=== PATIENT | male | born 1940 | race Two or more races ===

== ENCOUNTER → 2017-09-26 | Emergency (ER) | payer OTHER ==
[~2017-09-26] VITALS: Ht 172.7 cm; Wt 68.0 kg
[~2017-09-26] MED LIST: ALPHA LIPOIC A300 MG; ARICEPT5 MG; ASPIR 8181 MG; FOSAMAX70 MG; INTESTINEX1 CAP PO; MEDROLPACK PO; MELATONIN5 GM; NEURONTIN300 MG PO; PLAVIX 75MG PO; PROSCAR5 MG; PROTONIX40 MG PO; SEPTRA 80-400 T1 TAB PO; SYNTHROID125 MCG PO; TAMS0.4C PO; ZOCOR40 MG
== END | disposition home or self-care (01) ==
LOC: ER 14:06
DX: R07.89 Other chest pain (principal); S00.03XA Contusion of scalp, initial encounter; S19.9XXA Unspecified injury of neck, initial encounter; R55 Syncope and collapse; W18.09XA Striking against other object with subsequent fall, initial encounter; Y93.89 Activity, other specified; Y92.018 Other place in single-family (private) house as the place of occurrence of the external cause; Y99.8 Other external cause status

== ENCOUNTER 2017-10-11 08:52 | Outpatient (CLI) | payer OTHER | END 2017-10-11 09:10 | disposition home or self-care (01) | LOC: OFIC 805 08:52 | DX: H90.3 Sensorineural hearing loss, bilateral (principal); H61.23 Impacted cerumen, bilateral; R42 Dizziness and giddiness; J31.0 Chronic rhinitis ==

== ENCOUNTER 2017-11-04 10:23 | Emergency (ER) | payer OTHER ==
[~2017-11-04] VITALS: Ht 170.2 cm; Wt 66.2 kg
[2017-11-04] MEDS ORDERED: SYNTHROID137 MCG (10:43)
[2017-11-04] MEDS ORDERED: PERMETHRIN60 GM TOP (12:45)
== END 2017-11-04 12:54 | disposition home or self-care (01) ==
LOC: ER 10:23 → EDBD 10:32 → ER 12:54
DX: B86 Scabies (principal)

== ENCOUNTER 2017-12-13 11:02 | Outpatient (CLI) | payer OTHER ==
[~2017-12-13] VITALS: Ht 152.4 cm; Wt 59.0 kg
== END 2017-12-13 11:20 | disposition home or self-care (01) ==
LOC: OFIC 805 11:02
DX: H70.12 Chronic mastoiditis, left ear (principal); H69.82 Other specified disorders of Eustachian tube, left ear; H90.72 Mixed conductive and sensorineural hearing loss, unilateral, left ear, with unrestricted hearing on the contralateral side; H90.3 Sensorineural hearing loss, bilateral

== ENCOUNTER → 2017-12-13 | Outpatient (CLI) | payer OTHER ==
[~2017-12-13] MED LIST changes: +PERMETHRIN60 GM TOP; +SYNTHROID137 MCG
== END | disposition home or self-care (01) ==
LOC: TOM 13:22
DX: H70.12 Chronic mastoiditis, left ear (principal); H69.82 Other specified disorders of Eustachian tube, left ear

== ENCOUNTER 2018-01-03 07:14 | Outpatient (CLI) | payer OTHER ==
[~2018-01-03] VITALS: Ht 152.4 cm; Wt 65.8 kg
== END 2018-01-03 07:35 | disposition home or self-care (01) ==
LOC: OFIC 805 07:14
DX: H90.3 Sensorineural hearing loss, bilateral (principal); R42 Dizziness and giddiness; R55 Syncope and collapse

== ENCOUNTER 2018-01-23 11:22 | Emergency (ER) | payer OTHER ==
[~2018-01-23] VITALS: Ht 170.2 cm; Wt 64.9 kg
[2018-01-23] MEDS ORDERED: SYNTHROID150 MCG (11:32)
== END 2018-01-23 15:38 | disposition home or self-care (01) ==
LOC: ER 11:22
DX: B34.9 Viral infection, unspecified (principal)

== ENCOUNTER 2018-02-20 09:01 | Outpatient (CLI) | payer OTHER ==
[~2018-02-20 09:01] MED LIST changes: +SYNTHROID150 MCG
== END 2018-02-20 10:00 | disposition home or self-care (01) ==
LOC: NUCLEAR 09:01
DX: R55 Syncope and collapse (principal)

== ENCOUNTER 2018-06-29 11:08 | Emergency (ER) | payer OTHER ==
[~2018-06-29] VITALS: Ht 172.7 cm; Wt 67.1 kg
[2018-07-04] MEDS ORDERED: MECLIZINE HCL25 MG PO (12:46)
== END 2018-06-29 13:49 | disposition home or self-care (01) ==
LOC: ER 11:08
DX: R55 Syncope and collapse (principal)

== ENCOUNTER 2018-06-30 15:39 | Outpatient (CLI) | payer OTHER ==
[2018-07-04] MEDS ORDERED: MECLIZINE HCL25 MG PO (12:46)
== END 2018-06-30 15:44 | disposition home or self-care (01) ==
LOC: RAD 15:39
DX: M54.2 Cervicalgia (principal)

== ENCOUNTER 2018-06-30 16:23 | Emergency (ER) | payer OTHER ==
[~2018-06-30] VITALS: Ht 165.1 cm; Wt 68.0 kg
== END 2018-06-30 19:49 | disposition home or self-care (01) ==
LOC: ER 16:23
DX: K29.60 Other gastritis without bleeding (principal)

== ENCOUNTER 2018-07-02 16:01 | Inpatient (IN) | payer OTHER ==
[~2018-07-02] VITALS: Ht 165.1 cm; Wt 68.0 kg
[2018-07-04] MEDS ORDERED: MECLIZINE HCL25 MG PO ×2 (12:46)
== END 2018-07-04 13:17 | DRG 392 ==
LOC: SEC-K 16:01
PROC: B030ZZZ Magnetic Resonance Imaging (MRI) of Brain (ICD-10-PCS; principal; 2018-07-02)
PROC: B246ZZZ Ultrasonography of Right and Left Heart (ICD-10-PCS; 2018-07-02)
PROC: B345ZZZ Ultrasonography of Bilateral Common Carotid Arteries (ICD-10-PCS; 2018-07-03)
PROC: B348ZZZ Ultrasonography of Bilateral Internal Carotid Arteries (ICD-10-PCS; 2018-07-03)
DX: K29.00 Acute gastritis without bleeding (principal); R55 Syncope and collapse
CPT/HCPCS: 70544

== ENCOUNTER 2018-07-25 07:35 | Outpatient (CLI) | payer OTHER ==
[~2018-07-25 07:35] MED LIST changes: +MECLIZINE HCL25 MG PO
== END 2018-07-25 07:50 | disposition home or self-care (01) ==
LOC: OFIC 805 07:35
DX: R42 Dizziness and giddiness (principal); H61.23 Impacted cerumen, bilateral; R55 Syncope and collapse

== ENCOUNTER 2018-09-17 19:48 | Emergency (ER) | payer OTHER ==
[~2018-09-17] VITALS: Ht 167.6 cm; Wt 63.5 kg
[2018-09-17] MEDS ORDERED: PLAVIX75 MG (20:24)
[2018-09-17] MEDS ORDERED: SIMVASTATIN20 MG (20:25)
[2018-09-17] MEDS ORDERED: MIDODRINE HCL5 MG (20:26)
== END 2018-09-18 17:32 | disposition home or self-care (01) ==
LOC: ER 19:48
DX: N40.0 Benign prostatic hyperplasia without lower urinary tract symptoms (principal); R31.0 Gross hematuria; R30.0 Dysuria

== ENCOUNTER 2018-11-15 20:08 | Inpatient (IN) | payer OTHER ==
[~2018-11-15] VITALS: Ht 177.8 cm; Wt 66.7 kg
[~2018-11-15 20:08] MED LIST changes: +MIDODRINE HCL5 MG; +PLAVIX75 MG; +SIMVASTATIN20 MG
--- NOTE | 2018-11-15 21:21 | NUR ---
SE RECIBE PTE ALERTA Y ORIENTADO X3 DE AMBULANCIA ACOMPANADO. PTE REFIERE ESTAR CON HEMATURIA DESDE GÉNESIS. PTE REFIERE NO TENER DOLOR AL MOMENTO.
--- NOTE | 2018-11-16 00:24 | NUR ---
PT ALERTA Y ORIENTADAO X3 ESFERAS SE LE ORIENTA SOBRE TX Y REFIERE ENTEDER. SE KENNY MUESTRAS DE BRIAN Y VENOPUNCION CON TECNICAS ASEPTICAS. PT [place]. PENDIENTE INSERCION DE JOHN PAUL CATETER [address]. PT MANEJADO POR MS MOTTA.
--- NOTE | 2018-11-16 07:44 | NUR ---
SE RECIBE PTE ALERTA Y CONCIENTE POR 3 EN CAMA CON BARANDAS ELEVADA Y TIMBRE ACCESIBLE SE OSBERVA VENOPUNCION PATENTE Y LENA DE EDEMA PTE SE MANTIENE EN OBSERVACION Y BAJO TRATAMIENTO.PTE CON COKER 3WAY SE OBSERVA ORINA AL MOMENTO EDU SON BRIAN PTE ENESPERA DEL INTERNISTA
[2018-11-19] MEDS ORDERED: CIPRO500 MG PO (09:26)
[2018-11-19] MEDS ORDERED: PYRIDIUM100 MG PO (09:27)
[2018-11-19] MEDS ORDERED: CENTRUM SILVER1 EAC2 PO (09:29)
== END 2018-11-19 13:18 | disposition home or self-care (01) | DRG 696 ==
LOC: ER 20:08 → SEC-K 11-16 09:37 → SURH 11-16 09:37
PROVIDERS: ADMIT Internal Medicine
DX: R31.0 Gross hematuria (principal); N40.0 Benign prostatic hyperplasia without lower urinary tract symptoms

== ENCOUNTER 2019-01-09 03:13 | Emergency (ER) | payer OTHER ==
[~2019-01-09] VITALS: Ht 170.2 cm; Wt 68.0 kg
[~2019-01-09 03:13] MED LIST changes: +CENTRUM SILVER1 EAC2 PO; +CIPRO500 MG PO; +PYRIDIUM100 MG PO
[2019-01-09] MEDS ORDERED: PNEU16DI2 (03:42)
[2019-01-09] MEDS ORDERED: TAMS0.4C PO (03:42)
[2019-01-09] MEDS ORDERED: M.V.I.-1250 ML IV (03:42)
== END 2019-01-09 13:46 | disposition home or self-care (01) ==
LOC: ER 03:13
DX: K52.89 Other specified noninfective gastroenteritis and colitis (principal)

== ENCOUNTER 2019-05-14 08:44 | Outpatient (CLI) | payer OTHER ==
[~2019-05-14 08:44] MED LIST changes: +M.V.I.-1250 ML IV; +PNEU16DI2
== END 2019-05-14 08:51 | disposition home or self-care (01) ==
LOC: TOM 08:44
DX: G45.8 Other transient cerebral ischemic attacks and related syndromes (principal)

== ENCOUNTER 2020-06-22 13:43 | Outpatient (CLI) | payer OTHER | END 2020-06-22 13:57 | disposition home or self-care (01) | LOC: SONOGRAMA 13:43 → MAMO-SONO 13:45 → SONOGRAMA 13:57 | PROVIDERS: ATTEND Internal Medicine | DX: N28.89 Other specified disorders of kidney and ureter (principal) ==

== ENCOUNTER → 2020-08-24 | Emergency (ER) | payer OTHER ==
[~2020-08-24] VITALS: Ht 167.6 cm; Wt 68.0 kg
== END | disposition home or self-care (01) ==
LOC: ER 10:15
DX: M54.5 Low back pain (principal)

== ENCOUNTER → 2020-09-12 | Outpatient (CLI) | payer OTHER | END | disposition home or self-care (01) | LOC: MRI 14:08 | PROVIDERS: ATTEND Internal Medicine | DX: M48.07 Spinal stenosis, lumbosacral region (principal); M54.5 Low back pain | CPT/HCPCS: 72148 ==

== ENCOUNTER 2021-07-03 10:37 | Emergency (ER) | payer OTHER ==
[~2021-07-03] VITALS: Ht 162.6 cm; Wt 67.1 kg
== END 2021-07-03 15:30 | disposition home or self-care (01) ==
LOC: ER 10:37 → CPU-OBS 10:40 → ER 10:40
DX: R07.89 Other chest pain (principal); Z03.818 Encounter for observation for suspected exposure to other biological agents ruled out

== ENCOUNTER 2021-09-21 10:34 | Outpatient (CLI) | payer OTHER | END 2021-09-21 10:47 | disposition home or self-care (01) | LOC: SONOGRAMA 10:34 | PROVIDERS: ATTEND Internal Medicine | DX: E04.2 Nontoxic multinodular goiter (principal) ==

== ENCOUNTER 2021-10-23 07:51 | Outpatient (CLI) | payer OTHER | END 2021-10-23 07:58 | disposition home or self-care (01) | LOC: TOM 07:51 | PROVIDERS: ATTEND Specialist | DX: N40.1 Benign prostatic hyperplasia with lower urinary tract symptoms (principal) ==

== ENCOUNTER 2022-07-17 10:49 | Outpatient (CLI) | payer OTHER | END 2022-07-17 10:50 | disposition home or self-care (01) | LOC: NUCLEAR 10:49 | PROVIDERS: ATTEND Internal Medicine | DX: I73.9 Peripheral vascular disease, unspecified (principal); I87.2 Venous insufficiency (chronic) (peripheral) ==

== ENCOUNTER 2022-08-08 12:48 | Outpatient (CLI) | payer OTHER | END 2022-08-08 12:58 | disposition home or self-care (01) | LOC: PPH VACUNA 12:48 | PROVIDERS: ATTEND Emergency Medicine Pediatric Emergency Medicine | DX: Z23 Encounter for immunization (principal) ==

== ENCOUNTER → 2022-09-18 | Emergency (ER) | payer OTHER ==
[~2022-09-18] VITALS: Ht 167.6 cm; Wt 65.8 kg
[~2022-09-18] MED LIST changes: +EZETIMIBE10 MG PO; +ISOSORBIDE DINI30 MG PO; +PLAVIX75 MG PO; +PROTOPIC100 GM TP
== END | disposition left against medical advice (07) ==
LOC: ER 12:35
DX: R10.9 Unspecified abdominal pain (principal); K21.9 Gastro-esophageal reflux disease without esophagitis; E07.9 Disorder of thyroid, unspecified; I20.9 Angina pectoris, unspecified

== ENCOUNTER → 2022-10-10 | Outpatient (CLI) | payer OTHER | END | disposition home or self-care (01) | LOC: NUCLEAR 07:00 | PROVIDERS: ATTEND Internal Medicine | DX: R10.9 Unspecified abdominal pain (principal) | CPT/HCPCS: 78227; A9537; J2805 ==

== ENCOUNTER 2022-11-13 08:13 | Emergency (ER) | payer OTHER ==
[~2022-11-13] VITALS: Ht 180.3 cm; Wt 63.5 kg
== END 2022-11-13 11:48 | disposition home or self-care (01) ==
LOC: ER 08:13
DX: S29.8XXA Other specified injuries of thorax, initial encounter (principal); W06.XXXA Fall from bed, initial encounter; Y93.89 Activity, other specified; Y92.012 Bathroom of single-family (private) house as the place of occurrence of the external cause; F03.90 Unspecified dementia, unspecified severity, without behavioral disturbance, psychotic disturbance, mood disturbance, and anxiety; E07.89 Other specified disorders of thyroid; N41.8 Other inflammatory diseases of prostate; J32.8 Other chronic sinusitis; R07.81 Pleurodynia

== ENCOUNTER 2022-12-03 15:29 | Outpatient (CLI) | payer OTHER | END 2022-12-03 15:37 | disposition home or self-care (01) | LOC: RAD 15:29 | PROVIDERS: ATTEND Internal Medicine | DX: M54.17 Radiculopathy, lumbosacral region (principal) ==

== ENCOUNTER 2023-08-01 09:26 | Outpatient (CLI) | payer OTHER | END 2023-08-01 09:35 | disposition home or self-care (01) | LOC: SONOGRAMA 09:26 | PROVIDERS: ATTEND Internal Medicine | DX: N62 Hypertrophy of breast (principal) ==

== ENCOUNTER 2023-10-16 09:58 | Emergency (ER) | payer OTHER ==
[~2023-10-16] VITALS: Ht 162.6 cm; Wt 63.5 kg
[2023-10-16] MEDS ORDERED: SYNTHROID137 MCG PO (10:24)
[2023-10-16] MEDS ORDERED: NAMENDA5 MG PO (10:26)
[2023-10-16] MEDS ORDERED: ISOSORBIDE MONO60 MG PO (10:26)
[2023-10-16] MEDS ORDERED: MECLIZINE HCL 25 MG TABLET PO STA (10:46)
[2023-10-16 11:26] LABS: HEMATOCRIT 39.9 % (39.0-48.0); HEMOGLOBIN 13.4 g/dL (13-16.00); MEAN CELL VOLUME 95.8 fL (80.0-100.00); MEAN CORPUSCULAR HEMOGLOBIN 32.1 pg (27.00-32.0); MEAN CORPUSCULAR HGB CONC 33.5 g/dl (32.0-36.0); PLATELET COUNT 224 K/uL (150-450); RED BLOOD COUNT 4.17 M/uL (4.00-6.00)
[2023-10-16 11:36] LABS: PH,URINE 5.5 (5.0-8.0); URINE APPEARANCE Clear; URINE BILIRRUBIN Negative (NEGATIVE); URINE BLOOD Negative; URINE COLOR Yellow; URINE GLUCOSE Negative (NEGATIVE); URINE LEUKOCYTE Negative; URINE NITRATE Negative; URINE PROTEIN Negative (NEGATIVE); URINE UROBILINOGEN 0.2 E.U./dl
[2023-10-16 11:37] LABS: URINE BACTERIA 13.8 uL (0.0-1933); URINE RBC 2.8 uL (0.0-20.8); URINE WBC 5.2 uL (0.0-23.2)
[2023-10-16 11:41] LABS: URINE EPITHELIAL CELLS 0.7 uL (0.0-38.8)
[2023-10-16 11:44] LABS: CALCIUM 8.8 mg/dL (8.5-10.1); CREATININE SERUM 1.11 mg/dL (0.70-1.30); GFR 63.26; POTASSIUM 4.84 mEq/L (3.5-5.1)
== END 2023-10-16 13:35 | disposition home or self-care (01) ==
LOC: ER 09:58
PROVIDERS: General Practice
DX: R42 Dizziness and giddiness (principal); R53.1 Weakness; E03.8 Other specified hypothyroidism

== ENCOUNTER 2024-06-10 11:46 | Emergency (ER) | payer OTHER ==
[~2024-06-10] VITALS: Ht 162.6 cm; Wt 64.9 kg
[~2024-06-10 11:46] MED LIST changes: +ISOSORBIDE MONO60 MG PO; +NAMENDA5 MG PO; +SYNTHROID137 MCG PO
[2024-06-10] MEDS ORDERED: TRIAMCINOLONE ACETONIDE 40 MG/ML VIAL IM ONE (12:45)
[2024-06-10] MEDS ORDERED: ORPHENADRINE CITRATE 30 MG/ML AMPUL IM ONE (12:45)
[2024-06-10] MEDS ORDERED: AZITHROMYCIN 500 MG TABLET PO ONE (12:45)
[2024-06-10 13:32] LABS: HEMATOCRIT 40.9 % (39.0-48.0); HEMOGLOBIN 13.8 g/dL (13-16.00); MEAN CELL VOLUME 95.5 fL (80.0-100.00); MEAN CORPUSCULAR HEMOGLOBIN 32.2 pg (27.00-32.0); MEAN CORPUSCULAR HGB CONC 33.7 g/dl (32.0-36.0); PLATELET COUNT 216 K/uL (150-450); RED BLOOD COUNT 4.29 M/uL (4.00-6.00); RED CELL DISTRIBUTION WIDTH 13.9 % (11.5-14.5)
[2024-06-10] MEDS ORDERED: ZITHROMAX500 MG PO (14:37)
[2024-06-10] MEDS ORDERED: ZYRTEC10 M3 PO (14:37)
[2024-06-10] MEDS ORDERED: TUSSIN100 MG/51 PO (14:37)
== END 2024-06-10 14:46 | disposition home or self-care (01) ==
LOC: ER 11:48
PROVIDERS: General Practice
DX: M54.50 Low back pain, unspecified (principal); J06.9 Acute upper respiratory infection, unspecified; I11.9 Hypertensive heart disease without heart failure; Z20.822 Contact with and (suspected) exposure to COVID-19
CPT/HCPCS: 36415; 96372; 99282; J2360; J3301

== ENCOUNTER → 2024-08-30 | Emergency (ER) | payer OTHER ==
[~2024-08-30] VITALS: Ht 172.7 cm; Wt 61.2 kg
[~2024-08-30] MED LIST changes: +ACETAMINOPHEN 500 MG GEL..CAP PO ONE; +TUSSIN100 MG/51 PO; +ZITHROMAX500 MG PO; +ZYRTEC10 M3 PO
[2024-08-30 11:26] LABS: HEMATOCRIT 43.7 % (39.0-48.0); HEMOGLOBIN 14.7 g/dL (13-16.00); MEAN CELL VOLUME 95.4 fL (80.0-100.00); MEAN CORPUSCULAR HGB CONC 33.6 g/dl (32.0-36.0); PLATELET COUNT 194 K/uL (150-450); RED BLOOD COUNT 4.58 M/uL (4.00-6.00); RED CELL DISTRIBUTION WIDTH 13.4 % (11.5-14.5)
[2024-08-30 11:44] LABS: ALBUMIN 3.6 gm/dL (3.4-5.0); BILIRUBIN TOTAL 0.52 mg/dL (0.3-1.2); CALCIUM 8.9 mg/dL (8.5-10.1); CREATININE SERUM 1.28 mg/dL (0.70-1.30); GFR 53.54; GLOBULINA 4.3 G/DL (2.4-3.5); POTASSIUM 4.24 mEq/L (3.5-5.1); TOTAL PROTEIN 7.9 gm/dL (6.4-8.2)
== END | disposition home or self-care (01) ==
LOC: ER 10:18
PROVIDERS: General Practice
DX: J06.9 Acute upper respiratory infection, unspecified (principal); R51.9 Headache, unspecified; Z20.822 Contact with and (suspected) exposure to COVID-19

== ENCOUNTER 2024-09-04 13:22 | Emergency (ER) | payer OTHER ==
[~2024-09-04] VITALS: Ht 165.1 cm; Wt 61.2 kg
[~2024-09-04 13:22] MED LIST changes: -ACETAMINOPHEN 500 MG GEL..CAP PO ONE
[2024-09-04] MEDS ORDERED: FAMOtidine 10 MG/ML (4ML VIAL) IV ONE (15:15)
[2024-09-04] MEDS ORDERED: FAMOTIDINE/PF 20 MG/2 ML VIAL ONE (15:19)
[2024-09-04 16:02] LABS: HEMATOCRIT 45.8 % (39.0-48.0); HEMOGLOBIN 15.3 g/dL (13-16.00); MEAN CELL VOLUME 95.3 fL (80.0-100.00); MEAN CORPUSCULAR HEMOGLOBIN 31.8 pg (27.00-32.0); MEAN CORPUSCULAR HGB CONC 33.4 g/dl (32.0-36.0); RED CELL DISTRIBUTION WIDTH 13.3 % (11.5-14.5)
[2024-09-04 16:14] LABS: URINE APPEARANCE Cloudy; URINE BILIRRUBIN Small (NEGATIVE); URINE BLOOD Negative; URINE COLOR Dark Yellow; URINE GLUCOSE Negative (NEGATIVE); URINE KETONE Negative (NEGATIVE); URINE LEUKOCYTE Negative; URINE NITRATE Negative
[2024-09-04 16:18] LABS: URINE BACTERIA 133.4 uL (0.0-1933); URINE CAST 17.23 uL (0.0-1.40); URINE EPITHELIAL CELLS 26.2 uL (0.0-38.8); URINE RBC 10.4 uL (0.0-20.8); URINE WBC 10.2 uL (0.0-23.2)
[2024-09-04 16:25] LABS: PLATELET COUNT 121 K/uL (150-450)
[2024-09-04 16:28] LABS: BILIRUBIN TOTAL 0.39 mg/dL (0.3-1.2); CALCIUM 8.9 mg/dL (8.5-10.1); CREATININE SERUM 1.52 mg/dL (0.70-1.30); GFR 43.91; GLOBULINA 4.2 G/DL (2.4-3.5); POTASSIUM 4.35 mEq/L (3.5-5.1); TOTAL PROTEIN 7.2 gm/dL (6.4-8.2)
[2024-09-04 16:46] LABS: URINE PROTEIN 300 (NEGATIVE)
== END 2024-09-04 23:57 | disposition home or self-care (01) ==
LOC: ER 13:25
PROVIDERS: General Practice
DX: K29.70 Gastritis, unspecified, without bleeding (principal); R19.7 Diarrhea, unspecified; Z20.822 Contact with and (suspected) exposure to COVID-19; E03.8 Other specified hypothyroidism
CPT/HCPCS: 36415; 96365; 99282; J3490

== ENCOUNTER 2025-04-10 08:42 | Outpatient (CLI) | payer OTHER | END 2025-04-10 08:45 | disposition home or self-care (01) | LOC: RAD 08:42 | DX: I10 Essential (primary) hypertension (principal) ==

== ENCOUNTER → 2025-04-22 07:35 | Outpatient (CLI) | payer OTHER ==
[2025-04-22 08:32] LABS: BASO % 0.6 % (0.1-1.2); EOS # 0.08 (0.04-0.54); EOS % 1.0 % (0.7-7.0); LYMPH # 2.78 (1.18-3.74); LYMPH % 36.1 % (19.3-53.1); MEAN PLATELET VOLUME 10.60 fl (9.4-12.4); MONO # 1.03 (0.24-0.82); NEUT # 3.74 (1.56-6.13); NEUT % 48.6 % (34.0-71.1); RED CELL DISTRIBUTION WIDTH 12.6 % (11.6-14.4)
[2025-04-22 08:33] LABS: URINE APPEARANCE Clear; URINE BILIRRUBIN Negative (NEGATIVE); URINE BLOOD Negative; URINE COLOR Yellow; URINE GLUCOSE Negative (NEGATIVE); URINE KETONE Negative (NEGATIVE); URINE LEUKOCYTE Negative; URINE NITRATE Negative; URINE PROTEIN Negative (NEGATIVE); URINE UROBILINOGEN 0.2 E.U./dl
[2025-04-22 08:37] LABS: URINE BACTERIA 11.9 uL (0.0-1933); URINE EPITHELIAL CELLS 1.6 uL (0.0-38.8); URINE RBC 7.7 uL (0.0-20.8); URINE WBC 3.8 uL (0.0-23.2)
[2025-04-22 08:41] LABS: BUN CREA RATIO 21.0 (7.0-25.0); CREATININE SERUM 1.36 mg/dL (0.70-1.30); GFR 49.8; GLUCOSE FASTING 90.0 mg/dL (65-100); OSMOLALITY SERUM 292.0 MOSM/KG (275-295)
[2025-04-22 08:43] LABS: MONO % 13.4 % (4.7-12.5)
[2025-04-22 08:45] LABS: URINE CAST 0.29 uL (0.0-1.40)
[2025-04-22 08:46] LABS: INR 1.05
== END | disposition home or self-care (01) ==
LOC: LAB 07:35
PROVIDERS: ATTEND Internal Medicine
DX: I10 Essential (primary) hypertension (principal); Z01.818 Encounter for other preprocedural examination